=== PATIENT | female | born 1990 | race Two or more races ===

== ENCOUNTER 2024-08-07 13:05 | Emergency (ER) | payer OTHER ==
[2024-08-07 13:11] VITALS: BP 131/76; PULSE 87; RESP 18; TEMP 98.3; BMI 36.3
[2024-08-07] MEDS ORDERED: ACETAMINOPHEN 325 MG TABLET (FP) ONE (13:56)
[2024-08-07] MEDS ORDERED: LIDOCAINE 4% PATCH TP ONE (14:00)
[2024-08-07] MEDS: LIDOCAINE 4% PATCH TP ONE (14:02)
[2024-08-07] MEDS: ACETAMINOPHEN 325 MG TABLET (FP) PO ONE (14:03)
[2024-08-07 14:40] LABS: ABSOLUTE IMMATURE GRANULOCYTES 0.04 x10^3/uL (0.0-0.031); BASOPHILS # 0.04 x10^3/uL (0.01-0.08); EOSINOPHIL % 0.5 % (0.7-5.8); EOSINOPHILS # 0.05 x10^3/uL (0.04-0.36); HEMATOCRIT 41.8 % (34.1-44.9); HEMOGLOBIN 13.3 g/dL (11.2-15.7); MCHC 31.8 g/dl (32.2-35.5); MEAN CELL VOLUME 94.4 fl (79.4-94.8); MEAN PLT VOLUME 10.2 fl (9.4-12.3); MONOCYTE % 4.9 % (4.7-12.5); PLATELET COUNT 275 x10^3/uL (182-369); RDW 14.4 % (12.1-16.8)
[2024-08-07 14:59] LABS: POTASSIUM 4.2 mmol/L (3.5-5.1)
[2024-08-07 15:02] LABS: ALBUMIN 3.8 g/dl (3.4-5.0); BLOOD UREA NITROGEN 10.3 mg/dL (7-18); CALCIUM 9.7 mg/dL (8.5-10.1)
[2024-08-07 15:04] LABS: CREATININE 0.8 mg/dL (0.55-1.3)
[2024-08-07 15:06] LABS: BILIRUBIN,TOTAL 0.5 mg/dL (0.2-1)
[2024-08-07 15:07] LABS: TOT PROT 7.9 g/dl (6.4-8.2)
[2024-08-07] MEDS: CARBAMIDE PEROXIDE 6.5% OTIC 15 ML BOTTLE AU ONE (15:08)
[2024-08-07] MEDS ORDERED: LIDOCAINE PATCH REMOVAL MC ONE (22:00)
== END 2024-08-07 16:10 | disposition home or self-care (01) ==
LOC: JER 13:05
DX: R51.9 Headache, unspecified (principal); R06.02 Shortness of breath; I10 Essential (primary) hypertension; R00.2 Palpitations
CPT/HCPCS: 36415; 71046-TC-FY; 80053; 84484; 84703; 85025; 93005; 93010; 99285-25